=== PATIENT | male | born 1990 ===

== ENCOUNTER 2019-03-23 10:42 | Emergency (ER) | payer OTHER ==
[2019-03-23 11:14] VITALS: BP 107/69; PULSE 70; RESP 16; TEMP 98.4; O2SAT 100
[2019-03-23] MEDS ORDERED: Tetracaine 0.5% Ophth 2 ML BOTTLE OS STA (12:15)
[2019-03-23] MEDS ORDERED: Fluorescein 1 mg Ophthalmic Strip OS STA (12:15)
--- NOTE | 2019-03-23 12:41 | ED PDOC ---
HPI: Eye Injury/Pain Time Seen by Provider: 03/23/19 11:19 Chief Complaint (Nursing): Eye Problem Chief Complaint (Provider): left eye irritation History Per: Patient History/Exam Limitations: no limitations Additional Complaint(s): 28 y/o M with no significant PMH who presents with left eye irritation x 1 month. Pt states that he has had itching and watery Left eye for the past month. 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 He then began noticing left eye crusting and discharge (yellow) over the past 8 days. He decided to come to ER for further evaluation given concern for possible worsening symptoms. Has some discomfort but feels that it might be from rubbing his eyes all day. Denies foreign body sensation, eye pain, visual blurriness. Does not wear contacts. Past Medical History Reviewed: Historical Data, Nursing Documentation, Vital Signs Vital Signs: Last Vital Signs Temp 98.4 F 03/23/19 11:12 Pulse 70 03/23/19 11:12 Resp 16 03/23/19 11:12 BP 107/69 03/23/19 11:12 Pulse Ox 100 03/23/19 11:12 Primary Care Provider: FAMILY PROVIDER,NO - Medical History PMH: No Chronic Diseases - Family History Family History: States: Unknown Family Hx - Home Medications Home Medications: Ambulatory Orders Medication Instructions Recorded No Known Home Med 03/23/19 - Allergies Allergies/Adverse Reactions: Allergies Allergy/AdvReac Type Severity Reaction Status Date / Time No Known Allergies Allergy Verified 03/23/19 11:14 Review of Systems Constitutional: Negative for: Fever Eyes: Positive for: Conjunctivae Inflammation, Redness ENT: Negative for: Nose Discharge, Nose Congestion, Throat Pain Physical Exam - Reviewed Nursing Documentation Reviewed: Yes Vital Signs Reviewed: Yes - Physical Exam Appears: Positive for: Uncomfortable Eye Exam: Positive for: Conjunctival injection (left), Other (punctate white lesions x 2 on medial side on medial left conjunctivae. ) Neurological/Psych: Positive for: Awake, Alert, Oriented - ECG O2 Sat by Pulse Oximetry: 100 Medical Decision Making Medical Decision Making: Left eye examined under Lugo lamp after placement of tetracaine and fluorescein. Mild uptake in the medial left eye. Dr. Baig of ophthalmology consulted Case reviewed with Dr. Baig who states that patient likely has foreign body but can follow up in his office tomorrow morning at 9am. No prescriptions necessary for now. This was discussed with patient who was in agreement with plan and will follow up tomorrow. Stable for d/c home. Disposition - Clinical Impression Clinical Impression: Irritation of left eye - Patient ED Disposition Is Patient to be Admitted: No Counseled Patient/Family Regarding: Studies Performed, Diagnosis, Need For Followup - Disposition Referrals: Lester Baig MD [Staff Provider] - Disposition: Routine/Home Disposition Time: 13:00 Condition: STABLE Additional Instructions: Follow up with Dr. Baig tomorrow morning (03/24/19) at 9am without fail as you may have a foreign object in eye that will need to be removed. Instructions: Foreign Body in Eye (DC) Forms: [employer] (Swedish), [facility] ED School/Work Excuse Print Language: FIJIAN
== END 2019-03-23 12:55 | disposition home or self-care (01) ==
LOC: H.ER 10:42
DX: H57.12 Ocular pain, left eye (principal)

== ENCOUNTER 2019-03-24 11:22 | Emergency (ER) | payer OTHER ==
[2019-03-24 11:41] VITALS: RESP 16
--- NOTE | 2019-03-24 13:00 | ED PDOC ---
HPI: Eye Injury/Pain Time Seen by Provider: 03/24/19 12:08 Chief Complaint (Nursing): Eye Problem Chief Complaint (Provider): Eye Problem History Per: Patient History/Exam Limitations: no limitations Onset/Duration Of Symptoms: Days (x 1 month) Current Symptoms Are (Timing): Still Present Associated Symptoms: Other (irritation with tearing and crusting) Additional Complaint(s): 28 year old male with no significant medical history presents to the ED for evaluation of left eye irritation for the last month associated with tearing and some crusting. Patient reports crusting only developed 9 days ago. He was seen in this ED yesterday for the same complaint and was referred to be seen by Dr. Baig, [employer], this morning at 09:00. Per patient, he went to the office and was turned away as he could not afford payment given that he is uninsured. The doctor came to the waiting room to discuss with the patient and the patient left, prompting ED visit. Otherwise, the symptoms remain unchanged. PMD: none provided Past Medical History Reviewed: Historical Data, Nursing Documentation, Vital Signs Vital Signs: Last Vital Signs Temp 97 F L 03/24/19 11:36 Pulse 76 03/24/19 11:36 Resp 16 03/24/19 11:36 BP 111/69 03/24/19 11:36 Pulse Ox 98 03/24/19 11:36 Primary Care Provider: FAMILY PROVIDER,NO - Medical History PMH: No Chronic Diseases - Surgical History Surgical History: No Surg Hx - Family History Family History: States: Unknown Family Hx - Home Medications Home Medications: Ambulatory Orders Medication Instructions Recorded Tobramycin/Dexamethasone [TobraDex 1 drop OS Q4H #20 ml 03/24/19 0.3%-0.1% Opht Oint] - Allergies Allergies/Adverse Reactions: Allergies Allergy/AdvReac Type Severity Reaction Status Date / Time No Known Allergies Allergy Verified 03/24/19 11:35 Review of Systems ROS Statement: Except As Marked, All Systems Reviewed And Found Negative Eyes: Positive for: Other (irritation, tearing and crusting to the left eye) Physical Exam - Reviewed Nursing Documentation Reviewed: Yes Vital Signs Reviewed: Yes - Physical Exam Appears: Positive for: Uncomfortable Head Exam: Positive for: ATRAUMATIC, NORMAL INSPECTION, NORMOCEPHALIC Eye Exam: Positive for: Conjunctival injection (left), Other (punctate white lesions x 2 on medial side left conjunctivae over inflamed pterygium) Neurological/Psych: Positive for: Awake, Alert, Normal Tone, Oriented (x 3). Negative for: Motor/Sensory Deficits - ECG O2 Sat by Pulse Oximetry: 98 (RA) Pulse Ox Interpretation: Normal Medical Decision Making Medical Decision Makin:30 MDM: Dr Baig contacted; states that he went to speak to patient in waiting room and saw inflamed pterygium. He then informed patient that it will require surgery for resolution. Per doctor, he can be referred to ophthalmologic clinic at [facility] or at [facility] for surgery at a reduced fee. Also recommended a course of Tobradex, although improvement will only be temporary and surgery is permanent treatment. 12:43 Patient informed of discussion with doctor and will follow up at eye clinic at [facility] or [facility] in [place]. He is stable for discharge at this time with prescription for Tobradex and advised that relief with Tobradex will be tempporary until pterygium is removed. Scribe Attestation: Documented by Kenyetta Arrington, acting as a scribe Jes Mahan Provider Scribe Attestation: All medical record entries made by the Scribe were at my direction and personally dictated by me. I have reviewed the chart and agree that the record accurately reflects my personal performance of the history, physical exam, medical decision making, and the department course for this patient. I have also personally directed, reviewed, and agree with the discharge instructions and disposition. Disposition - Clinical Impression Clinical Impression: Pterygium - Patient ED Disposition Is Patient to be Admitted: No - Disposition Referrals: Lester Baig MD [Staff Provider] - Disposition: Routine/Home Disposition Time: 12:44 Condition: STABLE Additional Instructions: Follow up with either Dr. Baig when able for surgical removal of pterygium or you can go to eye clinic at [facility] . Take full course of eye drops as prescribed. Be aware that irritation of the eye will likely return after discontinuation of eye drops. Prescriptions: Tobramycin/Dexamethasone [TobraDex 0.3%-0.1% Opht Oint] 1 drop OS Q4H #20 ml Instructions: Pterygium (DC) Forms: [employer] (Maori), [employer] (Albanian) Print Language: MALAY
[2019-03-24 13:15] VITALS: BP 118/72; PULSE 80; TEMP 97.2
[2019-03-24 23:59] VITALS: O2SAT 98
== END 2019-03-24 13:13 | disposition home or self-care (01) ==
LOC: H.ER 11:22
DX: H11.009 Unspecified pterygium of unspecified eye (principal)